=== PATIENT | male | born 1960 | race Two or more races ===

== ENCOUNTER 2016-11-25 22:50 | Emergency (ER) | payer MEDICARE, OTHER ==
[2016-11-26 03:27] LABS: SPECIFIC GRAVITY 1.015 (1.001-1.030); URINE BILIRUBIN NEGATIVE (NEGATIVE); URINE BLOOD 4+ (NEGATIVE); URINE GLUCOSE (UA) NEGATIVE (NEGATIVE); URINE LEUKOCYTE ESTERASE 2+ (NEGATIVE); URINE NITRITE NEGATIVE (NEGATIVE); URINE PROTEIN 1+ (NEGATIVE); URINE UROBILINOGEN NORMAL (0-1 mg/dl)
[2016-11-26 03:30] LABS: URINE APPEARANCE CLOUDY; URINE COLOR STRAW
[2016-11-26 03:34] LABS: URINE AMORPHOUS SEDIMENT 3+; URINE BACTERIA 1+; URINE WBC >100 /hpf
[2016-11-26] MEDS ORDERED: ACETAMINOPHEN 325 MG TABLET ONE (03:55)
[2016-11-26] MEDS ORDERED: PHENAZOPYRIDINE HCL 200 MG TABLET ONE (03:55)
== END 2016-11-26 04:29 | disposition home or self-care (01) ==
LOC: ED 22:50
DX: R32 Unspecified urinary incontinence (principal); R10.9 Unspecified abdominal pain; G82.22 Paraplegia, incomplete
CPT/HCPCS: 87086; 87186; 81001; 99283 ×2; 51798; A9270 ×2